=== PATIENT | female | born 1995 | race Caucasian/White ===

== ENCOUNTER 2017-09-22 06:31 | Inpatient (IN) | payer BC ==
[2017-09-22 07:25] LABS: ABS Basophils 0.1 10^3/ul (0-0.2); ABS Eosinophils 0.1 10^3/ul (0-0.6); ABS Monocytes 0.7 10^3/ul (0-0.8); ABS Neutrophils 7.9 10^3/ul (1.5-7.7); ABS Nucleated RBC 0 10^3/ul; Eosinophil % 1.1 % (0-6); Hematocrit 35 % (35-47); Hemoglobin 12.3 g/dl (12.0-16.0); Lymphocyte % 18.3 % (25-47); Mean Corpuscular HGB Conc 35 g/dl (31-36); Mean Corpuscular Hemoglobin 31 pg (27-31); Mean Corpuscular Volume 91 fL (80-97); Mean Platelet Volume 8.7 um3 (7.4-10.4); Nucleated Red Blood Cells % 0; Platelet Count 230 10^3/ul (150-450); Red Blood Count 3.91 10^6/ul (4.00-5.40); Red Cell Distribution Width 14 % (10.5-15); White Blood Count 10.8 10^3/ul (3.5-10.8)
[2017-09-22 07:49] LABS: EGFR Non-African American 94.6 (>60)
[2017-09-22 08:12] LABS: Urine Appearance Cloudy; Urine Blood 3+ (Negative); Urine Color Yellow; Urine Ketones Negative (Negative); Urine Protein 1+(30 mg/dL) (Negative); Urine Red Blood Cell 3+(>10/hpf) (Absent); Urine Specific Gravity 1.021 (1.010-1.030); Urine Urobilinogen Negative (Negative); Urine White Blood Cell 3+(>20/hpf) (Absent)
--- NOTE | 2017-09-22 08:14 | ED ---
Altered Mental Status - HPI Summary HPI Summary: This is jose juan Naranjo documenting for attending Nereida Tirado M.D. Pt is a 22 y/o F BIBA as 9.41 for SI. [place] 0600. Per triage, Pt called a friend and decided not to jump. She states SI onset was a few years ago and reports previous suicide attempts, with the most recent being an overdose attempt one month ago. Pt reports being diagnosed w/ major depressive disorder. Hx of anxiety is noted on triage as well. She denies taking medications and going to therapy currently, but has previously. Pt denies visual/auditory hallucinations, drug usage, and HI. On triage, pain is denied and nothing is noted to alleviate/aggravate Sx. - History Of Current Complaint Chief Complaint: EDMentalHealth Stated Complaint: MHE Time Seen by Provider: 09/22/17 07:04 Hx Obtained From: Patient Timing: Lasting Weeks - Pt has noted SI onset a few years ago Severity Currently: None - Pt denies pain on triage Aggravating Factor(s): Nothing Alleviating Factor(s): Nothing Has Suicidal: Has Prior Attempt(s) - most recent stated to be an overdose attempt one month ago Has Homicidal: Thoughts - NEGATIVE - Allergies/Home Medications Allergies/Adverse Reactions: Allergies Allergy/AdvReac Type Severity Reaction Status Date / Time No Known Allergies Allergy Verified 09/22/17 07:15 Home Medications: Home Medications NK [No Home Medications Reported] 09/22/17 [History Confirmed 09/22/17] PMH/Surg Hx/FS Hx/Imm Hx Sensory History: Denies: Hx Legally Blind Psychiatric History: Reports: Hx Anxiety, Hx Depression, Hx Suicide Attempt - Immunization History Immunizations Up to Date: Yes Infectious Disease History: No Infectious Disease History: Denies: Traveled Outside the [place] in Last 30 Days - Family History Known Family History: Negative: Blood Disorder - Social History Alcohol Use: None Substance Use Type: Reports: None Smoking Status (MU): Never Smoked Tobacco Review of Systems Negative: Fever Positive: Depressed, Other - POSITIVE: recent suicide attempt, SI NEGATIVE: HI All Other Systems Reviewed And Are Negative: Yes Physical Exam - Summary Physical Exam Summary: GENERAL: Patient is a well developed and nourished female who is lying comfortable in the stretcher. Patient is not in any acute respiratory distress. Pt is noted to have a flat affect. HEAD AND FACE: Normocephalic EYES: PERRLA, EOMI x 2. EARS: Hearing grossly intact. MOUTH: Oropharynx within normal limits. NECK: Supple, trachea is midline, no adenopathy, no JVD, no carotid bruit. CHEST: Symmetric, no tenderness at palpation LUNGS: Clear to auscultation bilaterally. No wheezing or crackles. CVS: Regular rate and rhythm, S1 and S2 present, no murmurs or gallops appreciated. ABDOMEN: Soft, non-tender. Bowel sounds are normal. No abdominal abnormal pulsations. EXTREMITIES: Full ROM in all major joints, no edema, no cyanosis or clubbing. NEURO: Alert and oriented x 3. No acute neurological deficits. Speech is normal and follows commands. SKIN: Dry and warm Triage Information Reviewed: Yes Vital Signs On Initial Exam: Initial Vitals Temp Pulse Resp BP Pulse Ox 98.3 F 71 20 105/71 98 09/22/17 06:37 09/22/17 06:37 09/22/17 06:37 09/22/17 06:37 09/22/17 06:37 Vital Signs Reviewed: Yes Diagnostics - Vital Signs Vital Signs Temp Pulse Resp BP Pulse Ox 09/22/17 06:37 98.3 F 71 20 105/71 98 - Laboratory Lab Results: Lab Results 09/22/17 09/22/17 Range/Units 07:16 07:16 WBC 10.8 (3.5-10.8) 10^3/ul RBC 3.91 L (4.00-5.40) 10^6/ul Hgb 12.3 (12.0-16.0) g/dl Hct 35 (35-47) % MCV 91 (80-97) fL MCH 31 (27-31) pg MCHC 35 (31-36) g/dl RDW 14 (10.5-15) % Plt Count 230 (150-450) 10^3/ul MPV 8.7 (7.4-10.4) um3 Neut % (Auto) 73.4 (38-83) % Lymph % (Auto) 18.3 L (25-47) % Troup % (Auto) 6.7 (0-7) % Eos % (Auto) 1.1 (0-6) % Baso % (Auto) 0.5 (0-2) % Absolute Neuts (auto) 7.9 H (1.5-7.7) 10^3/ul Absolute Lymphs (auto) 2.0 (1.0-4.8) 10^3/ul Absolute Monos (auto) 0.7 (0-0.8) 10^3/ul Absolute Eos (auto) 0.1 (0-0.6) 10^3/ul Absolute Basos (auto) 0.1 (0-0.2) 10^3/ul Absolute Nucleated RBC 0 10^3/ul Nucleated RBC % 0 Sodium 140 (135-145) mmol/L Potassium 3.8 (3.5-5.0) mmol/L Chloride 105 (101-111) mmol/L Carbon Dioxide 27 (22-32) mmol/L Anion Gap 8 (2-11) mmol/L BUN 16 (6-24) mg/dL Creatinine 0.77 (0.51-0.95) mg/dL Est GFR ( Amer) 114.5 (>60) Est GFR (Non-Af Amer) 94.6 (>60) BUN/Creatinine Ratio 20.8 H (8-20) Glucose 89 (70-100) mg/dL Calcium 9.6 (8.6-10.3) mg/dL Total Bilirubin 0.40 (0.2-1.0) mg/dL AST 23 (13-39) U/L ALT 14 (7-52) U/L Alkaline Phosphatase 80 (34-104) U/L Total Protein 7.8 (6.4-8.9) g/dL Albumin 4.3 (3.2-5.2) g/dL Globulin 3.5 (2-4) g/dL Albumin/Globulin Ratio 1.2 (1-3) TSH Pending Salicylates < 2.50 (<30) mg/dL Acetaminophen < 15 mcg/mL Serum Alcohol < 10 (<10) mg/dL Result Diagrams: 09/22/17 07:16 09/22/17 07:16 Lab Statement: Any lab studies that have been ordered have been reviewed, and results considered in the medical decision making process. Altered Mental Statu Course/Dx - Course Assessment/Plan: This is scrreneee Bradley Naranjo documenting for attending Lindsey Tirado M.D. Pt is a 22 y/o F BIBA as 9.41 for SI. [place]. Per triage, Pt called a friend and decided not to jump. She states SI onset was a few years ago and reports previous suicide attempts, with the most recent being an overdose attempt one month ago. Pt reports being diagnosed w/ major depressive disorder. Hx of anxiety is noted on triage as well. She denies taking medications and going to therapy currently, but has previously. Pt denies visual/auditory hallucinations, drug usage, and HI. On triage, pain is denied and nothing is noted to alleviate/aggravate Sx. Pt was sent for a MHE. MHE discussed Pt with Dr. Tirado at 1238 with the desire to [place] [facility] agrees with this plan, and Pt was given a diagnosis of suicidal ideation. - Diagnoses Provider Diagnoses: Suicidal ideations - Provider Notifications Discussed Care Of Patient With: mental health mental health case manager Time Discussed With Above Provider: 12:38 Instructed by Provider To: Other - At 12:38, mental health mental health case manager discussed Pt with Dr. Tirado with the desire to admit Pt [place] [facility] Tirado was agreeable with this plan. Discharge - Sign-Out/Discharge Documenting (check all that apply): Patient Departure - admit - Discharge Plan Condition: Fair Disposition: ADMITTED TO [facility] - Billing Disposition and Condition Condition: FAIR Disposition: Admitted to [facility]
[2017-09-22] MEDS ORDERED: Acetaminophen TAB* 325 MG PO PRN (15:11)
[2017-09-22] MEDS ORDERED: Al Hydrox/Mg Hydrox/Simet LIQ* 30 ML UDC PO PRN (15:11)
[2017-09-22] MEDS ORDERED: hydrOXYzine HCL TAB* 50 MG PO PRN (16:06)
--- NOTE | 2017-09-22 16:09 | HP ---
H&P (Free Text) History and Physical: JUSTIFICATION FOR ADMISSION: Patient presented to emergency room with suicidal ideation and self-aborted attempt, worsening depression and irritability. Patient requires inpatient psychiatric admission in order to provide treatment and stabilization as she is a danger to herself. CHIEF COMPLAINT: "I dont have any reason to live HISTORY OF THE PRESENT ILLNESS: Patient is a 22 y/o single female, single, was living with mother, currently unemployed. Patient has history of Depression, self-injurious behavior and at least one previous suicidal attempt. Patient was admitted to inpatient unit for worsening of her depression and suicidal thoughts and recently went [place] [facility] [place] but stopped herself from doing that and called her friend. Patient was recently discharged a month ago from inpatient hospital stay in [place] for suicidal attempt where patient overdose on her medications Trazodone and Effexor. Patient has been non-compliant with her medication and therapy and moved to [place] with her mother from [place]. Patient reportedly has been struggling with her breakup since this years May. Patient reports no manic symptoms other than irritability in her mood. Patient reports no psychotic symptoms. Patient reported reduction in her appetite and no interest in food and also reporting disturbed sleep. Patient reports difficulty regulating her emotions and feels suicidal all the time for intermittently all her life but came to attention in last 2 years. Patient reported passive suicidal thoughts but denied any active suicidal or homicidal ideation at the time of evaluation on the unit. Patient behavior was in control on the unit with no self-injurious behaviors. PAST PSYCHIATRIC HISTORY: Patient has history of 5 inpatient psychiatric hospitalization. Patient has history of being intermittently compliant with outpatient psychiatric treatment for depression and suicidal thoughts. Patients medication has been Effexor and Trazodone which she overdosed on during last hospitalization. Patient has history of suicidal thoughts with one attempt that she overdoses last month as mentioned in HPI. Patient also has history of superficial self-injurious behavior on her upper arm and around hip but did not require any medical attention. Patient has no access to firearms. Patient has history of angry and agitated behavior when decompensates. No access to firearm reported. SUBSTANCE ABUSE HISTORY: Patient denies. PAST MEDICAL HISTORY: No active medical problems ALLERGIES: NKA FAMILY PSYCHIATRIC HISTORY: Patient has family history of anxiety in mother and sister. No reported suicide and substance abuse in the family. FAMILY/PSYCHOSOCIAL HISTORY: Patient currently lives with mother now but before that was in [place] with a roommate. 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 Patient is single and not currently in any relationship but craves for relationship with her ex-boyfriend who broke up with patient since May. Patient is unable to understand and has been struggling to cope with that. Patient education level is some college. Patient went to pursue Game designing initially then graphic designing but did not complete it. Patient was raised in [place] by her mother, patient reports I dont know my father . Patient has estranged relationship with her mother. REVIEW OF SYSTEMS: Patients review of symptoms was negative for any physical complaint. Patients ED physical exam was reviewed which is grossly normal with no active medical problem. MENTAL STATUS EXAMINATION: Appearance: thin built, dressed in hospital gown, superficially cooperative, making poor eye contact Behavior: oppositional Gait: normal Abnormal motor activity: none Speech: underproductive, terse, normal tone and volume Mood: not good Affect: constricted Thought process: goal directed Thought Content: Suicidal/Homicidal ideation: passive Delusions: none Obsessions: none Phobia: none Perceptual disturbance: none Attention: impaired Orientation: grossly intact Concentration: impaired Memory: intact Insight: poor Judgment: poor Impulse control: poor as per recent evidence, but fair at the time of evaulation IMPRESSION: Patient with history of depression and suicidal ideation, attempt and self-injurious behavior . Patient currently admitted due to worsening of depression and self-aborted suicidal attempt . Patient has also struggled with break up with her ex-boyfriend. Patient is a danger to self if discharged hence will be stabilized on inpatient unit with medication adjustments and therapy. DIAGNOSES: Major Depressive Disorder Prov: Borderline Personality Disorder PLAN: Admit to U on Q 15 min observation. Patient is full code. Patient is on involuntary admission status Integrate patient into the milieu individual and group psychotherapy MMPI and psychological consult with Dr. Michael. [place] work consult for therapy and discharge planning Will hold family meeting with parents to increase Data base. Patient gave informed consent to start the following medications: Patient was started on Remeron 15 mg QHS for depression, insomnia and anxiety.. Will also start Hydroxyzine 50mg Q6HRS PRN for anxiety. Will initiate multivitamin and Folic acid. Will continue to monitor and f/u for improvement and side effects. Saurabh Culp MD
[2017-09-22] MEDS: Mirtazapine TAB* 15 MG PO SCH (20:24)
[2017-09-23] MEDS: Vitamin THERAPEUTIC TAB PO SCH (08:18)
[2017-09-23] MEDS: Folic Acid TAB* 1 MG PO SCH (08:18)
[2017-09-23] MEDS: Mirtazapine TAB* 15 MG PO SCH (20:55)
[2017-09-24] MEDS: Vitamin THERAPEUTIC TAB PO SCH (08:58)
[2017-09-24] MEDS: Folic Acid TAB* 1 MG PO SCH (08:58)
--- NOTE | 2017-09-24 18:01 | PN ---
Subjective - Subjective Date of Service: 09/24/17 Service Type: 80506 Hosp care 15 min low complexity Subjective: Em reports that she is still depressed and suicidal without active plans. She refused her meds last night but will take it tonight. In the milieu active with peers and activities. Objective - Appearance Appearance: Healthy Appearing, Thin Framed Dysmorphic Features: No Hygiene: Normal Grooming: Well Kept - Behavior Psychomotor Activities: Normal Exhibits Abnormal Movement: No - Attitude and Relatedness Attitude and Relatedness: Appropriate Eye Contact: Good - Speech Quality: Unpressured Latencies: Normal Quantity: Appropriate - Mood Patient's Decription of Mood: "Sad" - Affect Observed Affect: Depressed - Thought Process Patient's Thought Process: Coherent, Goal Directed Thought Content: Yes Passive Wish, No Suicidal Planning, No Homicidal Ideation, No Paranoid Ideation - Sensorium Experiencing Hallucinations: No, Sensorium is Clear Type of Hallucinations: Visual: No, Auditory: No, Command: No - Level of Consciousness Level of Consciousness: Alert Orientation: Yes Intact, Yes Orientated to Time, Yes Orientated to Place, Yes Orientated to Person - Impulse Control Impulse Control: Intact - Insight and Judgement Insight and Judgement: Poor - Group Participation Particating in Group Activities: Yes - Medication Management Medication Management Adherence: No Assessment - Assessment Merits Inpatient Hospitalization: For Immediate Safety, For Stabilization, For Discharge Planning Clinical Impression: Still symptomatic but refusing meds. Plan - Plan Treatment Plan: Name: EM BENITEZ Birthdate: 1995 [id number] Continued Medication Management: Start Medication Medications: Current Medications Acetaminophen (Tylenol Tab*) 650 mg PO Q4H PRN PRN Reason: for pain; or Temp >101 F Al Hydrox/Mg Hydrox/Simethicone (Maalox Plus*) 30 ml PO Q4H PRN PRN Reason: INDIGESTION Folic Acid (Folvite Tab*) 1 mg PO DAILY ON LICENSE OF [facility] Last Admin: 09/24/17 08:58 Dose: 1 mg Hydroxyzine HCl (Atarax Tab*) 50 mg PO Q6H PRN PRN Reason: ANXIETY Mirtazapine (Remeron Tab*) 15 mg PO BEDTIME ON LICENSE OF [facility] Last Admin: 09/23/17 20:55 Dose: Not Given Multivitamins (Theragran Tab*) 1 tab PO DAILY ON [facility] OF [facility] Last Admin: 09/24/17 08:58 Dose: 1 tab - Discharge Plan Discharge Plan: Outpatient Follow Up Outpatient Program: [facility]
[2017-09-24] MEDS: Mirtazapine TAB* 15 MG PO SCH (21:26)
[2017-09-25] MEDS: Vitamin THERAPEUTIC TAB PO SCH (09:24)
[2017-09-25] MEDS: Folic Acid TAB* 1 MG PO SCH (09:25)
--- NOTE | 2017-09-25 11:43 | PN ---
MHU: Group Therapy Note - Service Type Service Type: 00077 Group Psychotherapy - Cognitive Behavioral Group Therapy ( CBT):Patient was attentive and participatory in CBT programming this morning, and remained in good behavioral control. Patient expressed positive insights regarding relevant treatment interventions and goals.
--- NOTE | 2017-09-25 13:15 | PN ---
Subjective - Subjective Date of Service: 09/25/17 Service Type: 06062 Hosp care 15 min low complexity Subjective: Patient was seen by self, discussed with treatment team, chart was reviewed. Patient has been compliant with her medications, no reported side effects. Patient reports some improvement in her sleep and mood, but continued to be dysphoric, less seclusive, less withdrawn, out in the milieu more. Patient sleeping has been better. Patient eating has been fair. Patient has been cooperative with staff. Patient behavior has been in control with no self injurious behavior. Patient has been reporting no active suicidal or homicidal ideation at time of evaluation but also states that she "I am always passively suicidal". Patient reports meeting her mother over the weekend. Patient felt that meeting went fine. No psychotic symptoms of delusions or hallucinations. Objective - Appearance Appearance: Thin Framed Dysmorphic Features: No Hygiene: Normal Grooming: Fairly Well Kept - Behavior Psychomotor Activities: Normal - Attitude and Relatedness Attitude and Relatedness: Cooperative Eye Contact: Fair - Speech Quality: Unpressured Latencies: Normal Quantity: Appropriate - Mood Patient's Decription of Mood: "Fine" - Affect Observed Affect: Constricted Affect Consistent with: Dysphoria - Thought Process Patient's Thought Process: Goal Directed Thought Content: Yes Passive Wish, No Suicidal Planning, No Homicidal Ideation, No Paranoid Ideation - Sensorium Experiencing Hallucinations: No, Sensorium is Clear Type of Hallucinations: Visual: No, Auditory: No, Command: No - Level of Consciousness Level of Consciousness: Alert Orientation: Yes Intact, Yes Orientated to Time, Yes Orientated to Place, Yes Orientated to Person - Impulse Control Impulse Control: Impaired - as per recent eviden but improving on the unit - Insight and Judgement Insight and Judgement: Poor - Group Participation Particating in Group Activities: Yes - Medication Management Medication Management Adherence: Yes Assessment - Assessment Merits Inpatient Hospitalization: For Stabilization Inpatient DSM-V Dx: F33.9 Clinical Impression: Patient with history of mood disorder . Patient currently admitted due to worsening of depression and recent aborted suicidal attempt. Patient has also been struggling with interpersonal conflicts (recent break up with her boyfriend , estranged relationship with mother) and other psychosocial stresses including her education, work and chronic suicidal thoughts. Patient is a danger to self, discharged hence medications are being adjusted and symptoms will be stabilized on inpatient and observed. Plan - Plan Treatment Plan: Name: ZAMZAM BENITEZ Birthdate: 1995 [id number] - Patient continues to be hospitalized due to recent aborted suicidal attempt, depression, and impulsivity. - Patient's medications were continued with Remeron 15 mg at bedtime - Patient will be monitored for improvement and side effects. Risk and benefits were discussed. - Patient was encouraged to continue his participation in the milieu, group and individual therapy. Medications: Current Medications Acetaminophen (Tylenol Tab*) 650 mg PO Q4H PRN PRN Reason: for pain; or Temp >101 F Al Hydrox/Mg Hydrox/Simethicone (Maalox Plus*) 30 ml PO Q4H PRN PRN Reason: INDIGESTION Folic Acid (Folvite Tab*) 1 mg PO DAILY [facility] Last Admin: 09/25/17 09:25 Dose: 1 mg Hydroxyzine HCl (Atarax Tab*) 50 mg PO Q6H PRN PRN Reason: ANXIETY Mirtazapine (Remeron Tab*) 15 mg PO BEDTIME [facility] Last Admin: 09/24/17 21:26 Dose: 15 mg Multivitamins (Theragran Tab*) 1 tab PO DAILY [facility] Last Admin: 09/25/17 09:24 Dose: 1 tab - Discharge Plan Discharge Plan: Outpatient Follow Up
[2017-09-25] MEDS: Mirtazapine TAB* 15 MG PO SCH (20:36)
[2017-09-26] MEDS: Folic Acid TAB* 1 MG PO SCH (08:33)
[2017-09-26] MEDS: Vitamin THERAPEUTIC TAB PO SCH (08:33)
--- NOTE | 2017-09-26 12:33 | PN ---
Subjective - Subjective Date of Service: 09/26/17 Service Type: [id number] Hosp care 15 min low complexity Subjective: Patient was seen by self, discussed with treatment team, chart was reviewed. Patient has been compliant with her medications, no reported side effects. Patient reports some improvement in her sleep and mood, less dysphoric, but constricted in her affect with minimal reactivity. Patient is less seclusive, less withdrawn, out in the milieu more, reading books and news papers and reports that she "bored" on the unit. Patient is attending therapy on the unit but reports taht she has gone to those sessions and was given psychoeducation around its ongoing need. Patient sleeping has been better. Patient eating has been fair. Patient has been cooperative with staff. Patient behavior has been in control with no self injurious behavior. Patient has been reporting no active or passive suicidal or homicidal ideation today. Patient reports meeting her mother during family meetings. No psychotic symptoms of delusions or hallucinations. Patient when asked about the breakup reported that she can not do much about it as she has done her part but have no communication from her ex boyfriend. Objective - Appearance Appearance: Thin Framed Dysmorphic Features: No Hygiene: Normal Grooming: Fairly Well Kept - Behavior Psychomotor Activities: Normal Exhibits Abnormal Movement: No - Attitude and Relatedness Attitude and Relatedness: Superficially Cooperative Eye Contact: Fair - Speech Quality: Unpressured Latencies: Normal Quantity: Terse - Mood Patient's Decription of Mood: "Okay" - Affect Observed Affect: Constricted Affect Consistent with: Dysphoria - Thought Process Patient's Thought Process: Goal Directed Thought Content: No Passive Wish, No Suicidal Planning, No Homicidal Ideation, No Paranoid Ideation - Sensorium Experiencing Hallucinations: No, Sensorium is Clear Type of Hallucinations: Visual: No, Auditory: No, Command: No - Level of Consciousness Level of Consciousness: Alert Orientation: Yes Intact, Yes Orientated to Time, Yes Orientated to Place, Yes Orientated to Person - Impulse Control Impulse Control: Intact - on the unit - Insight and Judgement Insight and Judgement: Poor - Group Participation Particating in Group Activities: Yes - Medication Management Medication Management Adherence: Yes Assessment - Assessment Inpatient DSM-V Dx: F33.9 Clinical Impression: Patient with history of mood disorder . Patient currently admitted due to worsening of depression and recent aborted suicidal attempt. Patient has also been struggling with interpersonal conflicts (recent break up with her boyfriend , estranged relationship with mother) and other psychosocial stresses including her education, work and chronic suicidal thoughts. Patient is a danger to self, discharged hence medications are being adjusted and symptoms will be stabilized on inpatient and observed. Plan - Plan Treatment Plan: Name: ZAMZAM BENITEZ Birthdate: 1995 [id number] - Patient continues to be hospitalized due to recent aborted suicidal attempt, depression, and impulsivity. - Patient's medications were continued with Remeron 15 mg at bedtime for depression and insomnia. - Patient will be monitored for improvement and side effects. Risk and benefits were discussed. - Patient was encouraged to continue his participation in the milieu, group and individual therapy. Medications: Current Medications Acetaminophen (Tylenol Tab*) 650 mg PO Q4H PRN PRN Reason: for pain; or Temp >101 F Al Hydrox/Mg Hydrox/Simethicone (Maalox Plus*) 30 ml PO Q4H PRN PRN Reason: INDIGESTION Folic Acid (Folvite Tab*) 1 mg PO DAILY [facility] Last Admin: 09/26/17 08:33 Dose: 1 mg Hydroxyzine HCl (Atarax Tab*) 50 mg PO Q6H PRN PRN Reason: ANXIETY Mirtazapine (Remeron Tab*) 15 mg PO BEDTIME [facility] Last Admin: 09/25/17 20:36 Dose: 15 mg Multivitamins (Theragran Tab*) 1 tab PO DAILY [facility] Last Admin: 09/26/17 08:33 Dose: 1 tab
--- NOTE | 2017-09-26 13:55 | PN ---
MHU: Group Therapy Note - Service Type Service Type: [id number] Group Psychotherapy - Cognitive Behavioral Group Therapy ( CBT):Patient was attentive and participatory in CBT programming this morning, and remained in good behavioral control. Patient expressed positive insights regarding relevant treatment interventions and goals.
[2017-09-26] MEDS: Mirtazapine TAB* 15 MG PO SCH (22:17)
[2017-09-27] MEDS: Folic Acid TAB* 1 MG PO SCH (08:55)
[2017-09-27] MEDS: Vitamin THERAPEUTIC TAB PO SCH (08:56)
--- NOTE | 2017-09-27 11:03 | PN ---
MHU: Group Therapy Note - Service Type Service Type: [id number] Group Psychotherapy - Cognitive Behavioral Group Therapy ( CBT):Patient attended CBT programming this morning and presented with flat affect that did not vary with discussion. Although responsive to direct prompts to respond to questions, patient did not engage in spontaneous conversation.
--- NOTE | 2017-09-27 13:56 | PN ---
Subjective - Subjective Date of Service: 09/27/17 Service Type: 86995 [facility] care 15 min low complexity Subjective: Patient was seen by self, discussed with treatment team, chart was reviewed. Patient has been compliant with her medications, no reported side effects. Patient reports improvement in her sleep and mood, less dysphoric, but constricted in her affect with minimal reactivity. Patient is less seclusive, less withdrawn, out in the milieu more, but reading books and continue to report that she is "bored" on the unit. Patient is attending therapy on the unit but reports that she has gone to those sessions in the past and shows little interest in that and when asked the reason. Patient reports that she does not ant to talk as others will get the negativity from her. Patient was given psychoeducation around her ongoing need to express feelings and emotions. Patient eating has been fair. Patient has been cooperative with staff. Patient behavior has been in control with no self injurious behavior. Patient has been reporting no active or passive suicidal or homicidal ideation today. Patient mother was unable to come for meeting today. No psychotic symptoms of delusions or hallucinations. Patient reported that her meeting with her mother went fine and they played a game together. Objective - Appearance Appearance: Thin Framed Dysmorphic Features: No Hygiene: Normal Grooming: Fairly Well Kept - Behavior Psychomotor Activities: Normal Exhibits Abnormal Movement: No - Attitude and Relatedness Attitude and Relatedness: Cooperative Eye Contact: Fair - Speech Quality: Unpressured Latencies: Normal Quantity: Terse - Mood Patient's Decription of Mood: "Okay" - Affect Observed Affect: Constricted Affect Consistent with: Dysphoria - but improving - Thought Process Patient's Thought Process: Goal Directed Thought Content: No Passive Wish, No Suicidal Planning, No Homicidal Ideation, No Paranoid Ideation - Sensorium Experiencing Hallucinations: No, Sensorium is Clear Type of Hallucinations: Visual: No, Auditory: No, Command: No - Level of Consciousness Level of Consciousness: Alert Orientation: Yes Intact, Yes Orientated to Time, Yes Orientated to Place, Yes Orientated to Person - Impulse Control Impulse Control: Intact - Insight and Judgement Insight and Judgement: Poor - Group Participation Particating in Group Activities: Yes - Medication Management Medication Management Adherence: Yes Assessment - Assessment Inpatient DSM-V Dx: F33.9 Clinical Impression: Patient with history of mood disorder . Patient currently admitted due to worsening of depression and recent aborted suicidal attempt. Patient has also been struggling with interpersonal conflicts (recent break up with her boyfriend , estranged relationship with mother) and other psychosocial stresses including her education, work and chronic suicidal thoughts. Patient is a danger to self, discharged hence medications are being adjusted and symptoms will be stabilized on inpatient and observed. Plan - Plan Treatment Plan: Name: ZAMZAM BENITEZ Birthdate: 1995 [id number] - Patient continues to be hospitalized due to recent aborted suicidal attempt, depression, and impulsivity. - Patient's medications were continued with Remeron 15 mg at bedtime for depression and insomnia. Patient was ecouraged to particpaate actively in therapy. - Patient will be monitored for improvement and side effects. Risk and benefits were discussed. - Patient was encouraged to continue his participation in the milieu, group and individual therapy. Medications: Current Medications Acetaminophen (Tylenol Tab*) 650 mg PO Q4H PRN PRN Reason: for pain; or Temp >101 F Al Hydrox/Mg Hydrox/Simethicone (Maalox Plus*) 30 ml PO Q4H PRN PRN Reason: INDIGESTION Folic Acid (Folvite Tab*) 1 mg PO DAILY [facility] Last Admin: 09/27/17 08:55 Dose: 1 mg Hydroxyzine HCl (Atarax Tab*) 50 mg PO Q6H PRN PRN Reason: ANXIETY Mirtazapine (Remeron Tab*) 15 mg PO BEDTIME [facility] Last Admin: 09/26/17 22:17 Dose: 15 mg Multivitamins (Theragran Tab*) 1 tab PO DAILY [facility] Last Admin: 09/27/17 08:56 Dose: 1 tab
[2017-09-27] MEDS: Mirtazapine TAB* 15 MG PO SCH (20:21)
[2017-09-28] MEDS: Vitamin THERAPEUTIC TAB PO SCH (09:07)
[2017-09-28] MEDS: Folic Acid TAB* 1 MG PO SCH (09:07)
--- NOTE | 2017-09-28 11:42 | PN ---
Subjective - Subjective Date of Service: 09/28/17 Service Type: 18194 [facility] care 15 min low complexity Subjective: Patient was seen by self, discussed with treatment team, chart was reviewed. Patient has been compliant with her medications, no reported side effects. Patient reports improvement sleep is fine and mood, less dysphoric, but continues to be constricted in her affect with minimal reactivity and some anger was seen towards her mother. Patient is less seclusive, less withdrawn, out in the milieu more, but reading books and continue to report that she is "bored" on the unit, do attend groups. Patient is attending therapy on the unit but shows limited interest and participation. Patient was again given psychoeducation around her ongoing need to express feelings and emotions and strengthening relationships. Patient eating has been fair. Patient has been cooperative with staff. Patient behavior has been in control with no self injurious behavior. Patient has been reporting no active or passive suicidal or homicidal ideation today. Patient mother would be coming for a meeting today. No psychotic symptoms of delusions or hallucinations. Patient reports that she will be returning to home and only thing that makes her feel good at home is her dog "ric" that she has for about 7-8 years. Objective - Appearance Appearance: Thin Framed Dysmorphic Features: No Hygiene: Normal Grooming: Fairly Well Kept - Behavior Psychomotor Activities: Normal - Attitude and Relatedness Attitude and Relatedness: Superficially Cooperative Eye Contact: Fair - Speech Quality: Unpressured Latencies: Normal Quantity: Appropriate - Mood Patient's Decription of Mood: "Okay" - Affect Observed Affect: Constricted Affect Consistent with: Dysphoria - Thought Process Patient's Thought Process: Goal Directed Thought Content: No Passive Wish, No Suicidal Planning, No Homicidal Ideation, No Paranoid Ideation - Sensorium Experiencing Hallucinations: No, Sensorium is Clear Type of Hallucinations: Visual: No, Auditory: No - Level of Consciousness Level of Consciousness: Alert Orientation: Yes Intact, Yes Orientated to Time, Yes Orientated to Place, Yes Orientated to Person - Impulse Control Impulse Control: Intact - Insight and Judgement Insight and Judgement: Fair - Medication Management Medication Management Adherence: Yes Assessment - Assessment Merits Inpatient Hospitalization: For Immediate Safety, For Stabilization, For Discharge Planning Inpatient DSM-V Dx: F33.9 Clinical Impression: Patient with history of mood disorder . Patient currently admitted due to worsening of depression and recent aborted suicidal attempt. Patient has also been struggling with interpersonal conflicts (recent break up with her boyfriend , estranged relationship with mother) and other psychosocial stresses including her education, work and chronic suicidal thoughts. Patient is a danger to self, discharged hence medications are being adjusted and symptoms will be stabilized on inpatient and observed. Plan - Plan Treatment Plan: Name: ZAMZAM BENITEZ Birthdate: 1995 [id number] - Patient continues to be hospitalized due to recent aborted suicidal attempt, depression, and impulsivity. - Patient's medications were continued with Remeron 15 mg at bedtime for depression and insomnia. Patient was encouraged to participate actively in therapy. - Patient will be monitored for improvement and side effects. Risk and benefits were discussed. - Patient was encouraged to continue his participation in the milieu, group and individual therapy. Medications: Current Medications Acetaminophen (Tylenol Tab*) 650 mg PO Q4H PRN PRN Reason: for pain; or Temp >101 F Al Hydrox/Mg Hydrox/Simethicone (Maalox Plus*) 30 ml PO Q4H PRN PRN Reason: INDIGESTION Folic Acid (Folvite Tab*) 1 mg PO DAILY [facility] Last Admin: 09/28/17 09:07 Dose: 1 mg Hydroxyzine HCl (Atarax Tab*) 50 mg PO Q6H PRN PRN Reason: ANXIETY Mirtazapine (Remeron Tab*) 15 mg PO BEDTIME [facility] Last Admin: 09/27/17 20:21 Dose: 15 mg Multivitamins (Theragran Tab*) 1 tab PO DAILY [facility] Last Admin: 09/28/17 09:07 Dose: 1 tab
--- NOTE | 2017-09-28 17:04 | PN ---
[facility]: Group Therapy Note - Service Type Service Type: [id number] Group Psychotherapy - Group Participation Patient Participating in Group: Yes Level of Group Participation: Attentive, Spontaneously Participate Relatedness to Group: Defended - Additional Group Comments Group Comments: Em came to group and was attentive, although reluctant to be there. She contributed spontaneously to the group discussion and made intermittent eye contact.
[2017-09-28] MEDS ORDERED: Mirtazapine TAB* 15 MG PO SCH (21:00)
[2017-09-29 08:40] VITALS: BP 99/63
[2017-09-29] MEDS: Folic Acid TAB* 1 MG PO SCH (08:40)
[2017-09-29] MEDS: Vitamin THERAPEUTIC TAB PO SCH (08:40)
--- NOTE | 2017-09-29 11:56 | CONS ---
PSYCHOLOGICAL REPORT: DATE OF CONSULT: 09/28/17 REASON FOR REFERRAL: Em was referred for personality testing secondary to concerns regarding severity of depressive symptoms as well as characterological vulnerabilities consistent with borderline personality features. TEST ADMINISTERED: Em completed the [place] Multiphasic Personality Inventory- 2 (MMPI-2), and was given feedback regarding results in individual conservation. RELEVANT HISTORY: Em is a 22-year-old, single female, currently living with her mother here in [place], [place], after recently struggling with dropping out of college at [employer] in [place], [place]. This is Em's 6th psychiatric admission with her 5 prior ones occurring in [place], all secondary to suicidal rumination. Em in recent weeks was not compliant with medication and therapy after moving back to [place] from [place]. She has struggled with breakup this past spring, but currently is disinclined to discuss this in detail. 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 She presently does not have plans to return to college. BEHAVIORAL OBSERVATIONS: Em has attended programming but concerns are about her level of engagement in discussion. She often reads independently while present in the group or works on crossword puzzles. She describes being "bored " with hospital programming describing being familiar with content discussed secondary to her prior experiences. However, in individual conservation, she vacillates between being dismissive and then becoming tearful once engaged in conservations about family dynamics. She describes a distant relationship historically with her mother and currently expresses no interest in trying to repair this dynamic; however, she becomes tearful and defensive in this conversation. Discussion was not able to get into further depth regarding her apparent disdain for her mother, as she simply reverts to expressing a preference for immediate discharge. Em describes having self-preserved and denies intent to engage in suicidal behavior. She presently denies ongoing thoughts of suicide and describes intentions of compliance with recommended medications as well as outpatient treatment. While on the unit, Em has been compliant with unit costello routine as well as taking prescribed medications. TEST RESULTS: Em provides a moderately elevated emotional duress indicator on the validity scale indices, having elevated all 3 F scales including the Fb scale to a level of T = 87. Reassuringly, she has moderate scores on coping and self- esteem, with these indices hovering around T score of 55. Also felt to be reassuring is a minimally elevated depression scale (T = 67), which reveals concerns regarding depression, but perhaps does not rise to the major depressive levels typically seen in persons admitted under such circumstances. Her primary elevation occurs on the psychopathic deviate scale (T = 80), which is often consistent with college-oriented persons, who may have some disdain for social conformity. As Em does not evidence sociopathy in behavior history , this is likely to reveal independent-minded young woman, who can stand apart from social norms and expectations. She does not elevate any of the psychotic indices nor does she elevate the hypomania scale. There were no concerns regarding such matters in clinical presentation or history either. Results are reflective of depressive symptom set and do not support concerns regarding borderline personality traits. IMPRESSIONS AND RECOMMENDATIONS: It is felt that Em will comply with outpatient treatment while remaining in [place] at least and perhaps re-engage when she moves back to [place] this coming November. Concerns are that she does not have a very clear sense of future orientation other than that she expects to return to [place] and resume employment when school is back in session. Ongoing treatment might begin to address longer term goals and aspirations as well as begin to address implications of family dynamics and her family of origin. [id number]/[facility] #: [id number] CHAVA
--- NOTE | 2017-09-29 11:56 | DS ---
Subjective - Subjective Service Types: [id number] [facility] Day Mgmt simple under 30 min Discharge Date: 09/29/17 Subjective: JUSTIFICATION FOR ADMISSION: Patient presented to emergency room with suicidal ideation and self-aborted attempt, worsening depression and irritability. Patient requires inpatient psychiatric admission in order to provide treatment and stabilization as she is a danger to herself. CHIEF COMPLAINT: "I dont have any reason to live HISTORY OF THE PRESENT ILLNESS: Patient is a 22 y/o single female, single, was living with mother, currently unemployed. Patient has history of Depression, self-injurious behavior and at least one previous suicidal attempt. Patient was admitted to inpatient unit for worsening of her depression and suicidal thoughts and recently went to the [facility] [place] [place] to jump but stopped herself from doing that and called her friend. Patient was recently discharged a month ago from inpatient hospital stay in [place] for suicidal attempt where patient overdose on her medications Trazodone and Effexor. Patient has been non-compliant with her medication and therapy and moved to [place] with her mother from [place]. Patient reportedly has been struggling with her breakup since this years May. Patient reports no manic symptoms other than irritability in her mood. Patient reports no psychotic symptoms. Patient reported reduction in her appetite and no interest in food and also reporting disturbed sleep. Patient reports difficulty regulating her emotions and feels suicidal all the time for intermittently all her life but came to attention in last 2 years. Patient reported passive suicidal thoughts but denied any active suicidal or homicidal ideation at the time of evaluation on the unit. Patient behavior was in control on the unit with no self-injurious behaviors. PAST PSYCHIATRIC HISTORY: Patient has history of 5 inpatient psychiatric hospitalization. Patient has history of being intermittently compliant with outpatient psychiatric treatment for depression and suicidal thoughts. Patients medication has been Effexor and Trazodone which she overdosed on during last hospitalization. Patient has history of suicidal thoughts with one attempt that she overdoses last month as mentioned in HPI. Patient also has history of superficial self-injurious behavior on her upper arm and around hip but did not require any medical attention. Patient has no access to firearms. Patient has history of angry and agitated behavior when decompensates. No access to firearm reported. SUBSTANCE ABUSE HISTORY: Patient denies. PAST MEDICAL HISTORY: No active medical problems ALLERGIES: NKA FAMILY PSYCHIATRIC HISTORY: Patient has family history of anxiety in mother and sister. No reported suicide and substance abuse in the family. FAMILY/PSYCHOSOCIAL HISTORY: Patient currently lives with mother now but before that was in [place] with a roommate. 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 Patient is single and not currently in any relationship but craves for relationship with her ex-boyfriend who broke up with patient since May. Patient is unable to understand and has been struggling to cope with that. Patient education level is some college. Patient went to pursue Game designing initially then graphic designing but did not complete it. Patient was raised in [place] by her mother, patient reports I dont know my father . Patient has estranged relationship with her mother. REVIEW OF SYSTEMS: Patients review of symptoms was negative for any physical complaint. Patients ED physical exam was reviewed which is grossly normal with no active medical problem. MENTAL STATUS EXAMINATION ON ADMISSION: Appearance: thin built, dressed in hospital gown, superficially cooperative, making poor eye contact Behavior: oppositional Gait: normal Abnormal motor activity: none Speech: underproductive, terse, normal tone and volume Mood: not good Affect: constricted Thought process: goal directed Thought Content: Suicidal/Homicidal ideation: passive Delusions: none Obsessions: none Phobia: none Perceptual disturbance: none Attention: impaired Orientation: grossly intact Concentration: impaired Memory: intact Insight: poor Judgment: poor Impulse control: poor as per recent evidence, but fair at the time of evaulation Objective - Appearance Appearance: Thin Framed Dysmorphic Features: No Hygiene: Normal Grooming: Fairly Well Kept - Attitude and Relatedness Attitude and Relatedness: Cooperative - Speech Quality: Unpressured Quantity: Appropriate - Mood Patient's Decription of Mood: "Fine" - Affect Observed Affect: Constricted - but more reactive Affect Consistent with: Euthymia - Thought Process Patient's Thought Process: Coherent Thought Content: No Passive Wish, No Suicidal Planning, No Homicidal Ideation, No Paranoid Ideation - Sensorium Experiencing Hallucinations: No, Sensorium is Clear Type of Hallucinations: Visual: No, Auditory: No, Command: No - Level of Consciousness Level of Consciousness: Alert Orientation: Yes Intact, Yes Orientated to Time, Yes Orientated to Place, Yes Orientated to Person - Impulse Control Impulse Control: Intact - Insight and Judgement Insight and Judgement: Fair - Group Participation Particating in Group Activities: Yes - Medication Management Medication Management Adherence: Yes Treatment Course & Assessment Clinical Course & Impression: Patient with history of mood disorder . Patient currently admitted due to worsening of depression and recent aborted suicidal attempt. Patient has also been struggling with interpersonal conflicts (recent break up with her boyfriend , estranged relationship with mother) and other psychosocial stresses including her education, work and chronic suicidal thoughts. Patient was a danger to self hence medications were adjusted to stabilize patient. Patient was admitted to [facility] on Q 15 min observation. Patient was on involuntary admission status. Patient was encouraged to participate in the milieu and therapy. MMPI and psychological consult with Dr. Michael. After informed consent patient was started on Remeron 15 mg QHS for depression, insomnia and anxiety. Patient was also started on Hydroxyzine 50mg Q6HRS PRN for anxiety. Patient was also initiated on multivitamin and Folic acid given her reduced appetite. Patient was monitored on the unit for improvement and side effects. Patient was compliant with her medications, no reported side effects. Patient reports some improvement in her sleep and mood with medications, but continued to be dysphoric, but less seclusive, less withdrawn, out in the milieu more. Patient sleeping was better. Patient eating improved and was fair during the hospitalization. Patient was cooperative with staff. Patient behavior was in control with no self injurious behavior through out hospitalization. Patient did not report active suicidal or homicidal ideation but during initial days of hospitalization mentioned passive suicidal ideation. Patient reports meeting her mother at multiple instances during this hospitalization with out any concerns or behavioral outburst. No psychotic symptoms of delusions or hallucinations were observed or reported. Patient was able to find some positive things that she likes to do and that makes her feel better and was doing well in the hospital and reported that she wants to work on her residual depressive symptoms and personality characteristics outpatient with therapist and psychiatrist. Family meeting was held to plan further treatment and discharge. Patient and family were requesting discharge and she did not meet criteria for involuntary hospitalization. Patient reported that she id doing fine, not suicidal and not homicidal, taking care of herself on the unit. Patient was discussed with team, was not a danger to self and others, not psychotic, residual but improved depression, no si/no hi. Patient was willing to f/u outpatient care and hence patient was discharged, patient and family agreed with the plan. Clear for Discharge: Adequate Clinical Respons Inpatient DSM-V Dx: F33.9 Discharge Planning - Discharge Planning Discharge Plan: Outpatient Follow Up Recommendations for Continuing Care: Medication Management, Psychotherapy Medications: Discharge Medications Folic Acid (Folvite Tab*) 1 mg PO DAILY [facility] Last Admin: 09/29/17 08:40 Dose: 1 mg Mirtazapine (Remeron Tab*) 30 mg PO BEDTIME [facility] Last Admin: 09/28/17 20:37 Dose: 30 mg Discharge Planning: Prescriptions provided for discharge [] Yes [] No Follow up care details as per social work arrangements. Patient response to discharge plan: [] eager for discharge [] agreeable with discharge plan [] ambivalent about discharge [] disagrees with discharge today
== END 2017-09-29 16:15 | disposition home or self-care (01) | DRG 751 ==
LOC: ED 06:31 → BSU 15:39
PROVIDERS: ADMIT Psychiatry & Neurology Psychiatry; ATTEND Psychiatry & Neurology Psychiatry
PROC: GZHZZZZ Group Psychotherapy (ICD-10-PCS; principal; 2017-09-28)
DX: F33.9 Major depressive disorder, recurrent, unspecified (principal); R45.851 Suicidal ideations; F41.9 Anxiety disorder, unspecified; R63.0 Anorexia; G47.00 Insomnia, unspecified; F60.3 Borderline personality disorder; Z56.0 Unemployment, unspecified; Z91.5 Personal history of self-harm; Z91.14 Patient's other noncompliance with medication regimen; Z81.8 Family history of other mental and behavioral disorders
CPT/HCPCS: 36415; 80053; 80061; 80307; 80320; 80329; 81003; 81015; 83036; 84443; 85025; 87086; 90853; 93005; 96102; 99222; 99231; 99238; 99284; A9270-GY; G0480